=== PATIENT | female | born 1935 | race Caucasian/White ===

== ENCOUNTER 2025-01-09 20:19 | Inpatient (IN) | payer MEDICAID, MEDICARE ==
[~2025-01-09] VITALS: Ht 157.5 cm; Wt 49.9 kg
[2025-01-09] MEDS: MAGNESIUM/ALUMINUM HYDROXIDE/SIMETHICONE 30ML UDC PO ONE (21:13)
[2025-01-09 21:28] LABS: BASOPHILS % 0.8 % (0.0-2.0); HEMATOCRIT. 40.8 % (36.0-48.0); HEMOGLOBIN. 13.4 g/dL (12.0-16.0); LYMPHOCYTES % 37.5 % (20.0-50.0); MEAN CORPUSCULAR HEMOGLOBIN 29.5 pg (28.0-32.0); MEAN CORPUSCULAR HGB CONC 32.9 g/dL (31.0-37.0); MEAN CORPUSCULAR VOLUME 89.8 fL (81.0-99.0); MEAN PLATELET VOLUME 8.6 fl (7.4-10.4); MONOCYTES % 10.8 % (2.0-8.0); NEUTROPHILS % 47.9 % (40.0-76.0); PLATELET 215 x1000/uL (130-400); RED BLOOD CELL COUNT 4.54 mill/uL (4.2-5.4); RED CELL DISTRIBUTION WIDTH 15.5 % (11.6-14.6); WHITE BLOOD COUNT 5.5 x1000/uL (4.5-11.0)
[2025-01-09 21:33] LABS: POTASSIUM 4.2 mEq/L (3.5-5.1)
[2025-01-09 21:34] LABS: CALCIUM 9.5 mg/dL (8.7-10.4)
[2025-01-09 21:39] LABS: CREATININE 1.1 mg/dL (0.6-1.0)
[2025-01-10] VITALS (7 sets, daily range): BP systolic 102–152; BP diastolic 50–105; PULSE 61–78; RESP 18–19; TEMP 35.7–36.6; O2SAT 97–100
[2025-01-10] MEDS ORDERED: IPRATROPIUM/ALBUTEROL 0.5-3(2.5)MG/3ML NEB HHN PRN (03:00)
[2025-01-10] MEDS ORDERED: ONDANSETRON HCL 4MG/2ML INJ IV PRN (03:00)
[2025-01-10] MEDS ORDERED: ACETAMINOPHEN 325MG TABLET PO PRN (03:00)
[2025-01-10] MEDS ORDERED: HYDRALAZINE 20MG/ML VIAL IV PRN (03:15)
[2025-01-10] MEDS ORDERED: HYDRALAZINE 10 MG in SODIUM CHLORIDE 0.9% 49.5 ML IV PRN (03:15)
[2025-01-10] MEDS: DEXT 5%/0.45% NACL 1000ML 1,000 ML IV SCH (03:50)
[2025-01-10] MEDS: PANTOPRAZOLE SODIUM 40 MG/VIAL IV SCH (03:51)
[2025-01-10] MEDS: CETIRIZINE 10MG TABLET PO NR (04:42)
[2025-01-10] MEDS: ENOXAPARIN 30MG/0.3ML SYR SUBCUT SCH (08:52)
[2025-01-10 13:48] LABS: CHLORIDE 109 mEq/L (98-107); POTASSIUM 3.7 mEq/L (3.5-5.1); SODIUM 141 mEq/L (136-145)
[2025-01-10 13:49] LABS: CALCIUM 8.3 mg/dL (8.7-10.4); CARBON DIOXIDE 25 mEq/L (21-32)
[2025-01-10 13:54] LABS: GLUCOSE 116 mg/dL (70-105); TROPONIN I HIGH SENSITIVITY 22 ng/L (3.0-34); UREA NITROGEN BLOOD 21 mg/dL (9-23)
[2025-01-10 13:56] LABS: ALANINE AMINOTRANSFERASE 29 IU/L (10-49); ALBUMIN 3.7 g/dL (3.2-4.8); ASPARTATE AMINOTRANSFERASE 31 IU/L (<34); BILIRUBIN DIRECT 0.1 mg/dL (<=3.0); BILIRUBIN TOTAL 0.4 mg/dL (0.1-1.0); PROTEIN TOTAL 6.4 g/dL (6.0-8.3)
[2025-01-10 17:57] LABS: CREATINE KINASE MB FRACTION 3.5 ng/mL (0.5-3.6)
[2025-01-10 22:23] LABS: CLARITY URINE CLEAR (CLEAR); COLOR URINE YELLOW (YELLOW); GLUCOSE URINE NEGATIVE (NEGATIVE); KETONES URINE NEGATIVE (NEGATIVE); LEUKOCYTE ESTERASE URINE 3+ (NEGATIVE); NITRITE URINE NEGATIVE (NEGATIVE); OCCULT BLOOD URINE TRACE (NEGATIVE); PH URINE 5.5 (4.5-8.0); PROTEIN URINE NEGATIVE (NEGATIVE); SPECIFIC GRAVITY URINE 1.008 (1.005-1.030); UROBILINOGEN URINE 0.2 E.U./dL (0.2-1.0)
[2025-01-10 22:31] LABS: *AMPHETAMINES SCREEN URINE NEGATIVE (NEGATIVE); *BENZODIAZEPINES SCREEN URINE NEGATIVE (NEGATIVE)
[2025-01-10 22:32] LABS: *BARBITURATES SCREEN URINE NEGATIVE (NEGATIVE); *COCAINE SCREEN URINE NEGATIVE (NEGATIVE); CANNABINOID URINE SCREEN NEGATIVE (NEGATIVE); ECSTASY MDMA SCREEN URINE NEGATIVE (NEGATIVE); METHADONE URINE SCREEN NEGATIVE (NEGATIVE); OPIATES URINE SCREEN NEGATIVE (NEGATIVE); PHENCYCLIDINE URINE SCREEN NEGATIVE (NEGATIVE)
[2025-01-10 22:34] LABS: BACTERIA URINE 4+; RBC URINE 0-2 /hpf (0-2); SQUAMOUS EPITHELIAL CELL URINE 2+ /lpf (RARE/1+)
[2025-01-10 22:35] LABS: WBC URINE 25-50 /hpf (0-2)
[2025-01-11] VITALS: BP 139/69; PULSE 73; RESP 18; TEMP 35.9; O2SAT 99
[2025-01-11 04:00] VITALS: BP 143/71; PULSE 67; RESP 19; TEMP 36.7; O2SAT 100
[2025-01-11 08:00] VITALS: BP 168/98; PULSE 72; RESP 18; TEMP 36.3; O2SAT 98
[2025-01-11 12:00] VITALS: BP 150/82; PULSE 76; RESP 19; TEMP 36.3; O2SAT 97
[2025-01-11 16:00] VITALS: BP 119/68; PULSE 68; RESP 18; TEMP 36.5; O2SAT 99
[2025-01-11 16:00] LABS: BASOPHILS % 0.5 % (0.0-2.0); EOSINOPHILS % 3.2 % (0.0-5.0); HEMATOCRIT. 37.4 % (36.0-48.0); HEMOGLOBIN. 12.2 g/dL (12.0-16.0); LYMPHOCYTES % 24.7 % (20.0-50.0); MEAN CORPUSCULAR HEMOGLOBIN 29.9 pg (28.0-32.0); MEAN CORPUSCULAR HGB CONC 32.6 g/dL (31.0-37.0); MEAN CORPUSCULAR VOLUME 91.6 fL (81.0-99.0); MEAN PLATELET VOLUME 8.7 fl (7.4-10.4); MONOCYTES % 14.5 % (2.0-8.0); NEUTROPHILS % 57.1 % (40.0-76.0); PLATELET 179 x1000/uL (130-400); RED BLOOD CELL COUNT 4.08 mill/uL (4.2-5.4); RED CELL DISTRIBUTION WIDTH 15.6 % (11.6-14.6); WHITE BLOOD COUNT 6.2 x1000/uL (4.5-11.0)
[2025-01-11 16:12] LABS: CARBON DIOXIDE 25 mEq/L (21-32); CHLORIDE 111 mEq/L (98-107); POTASSIUM 3.6 mEq/L (3.5-5.1); SODIUM 143 mEq/L (136-145)
[2025-01-11 16:14] LABS: CALCIUM 8.6 mg/dL (8.7-10.4)
[2025-01-11 16:18] LABS: CREATININE 0.8 mg/dL (0.6-1.0); GLUCOSE 92 mg/dL (70-105); UREA NITROGEN BLOOD 15 mg/dL (9-23)
[2025-01-11 16:21] LABS: T4 FREE 1.04 ng/dL (0.89-1.76)
[2025-01-11 16:22] LABS: THYROID STIMULATING HORMONE 4.13 uIU/mL (0.55-4.78)
[2025-01-11 20:00] VITALS: BP 128/59; PULSE 73; RESP 19; TEMP 36.7; O2SAT 97
[2025-01-12] VITALS: BP 129/63; PULSE 82; RESP 18; TEMP 36.5; O2SAT 98
[2025-01-12 04:00] VITALS: BP 122/71; PULSE 83; RESP 20; TEMP 36.6; O2SAT 95
[2025-01-12 08:00] VITALS: BP 125/70; PULSE 67; RESP 20; TEMP 36.6; O2SAT 99
[2025-01-12] MEDS: FAMOTIDINE 20MG/2ML VIAL IV SCH (08:42)
[2025-01-12] MEDS: ENOXAPARIN 40MG/0.4ML SYR SUBCUT SCH (08:43)
[2025-01-12 12:00] VITALS: BP 146/67; PULSE 81; RESP 20; TEMP 36.6; O2SAT 100
[2025-01-12 14:00] VITALS: BP 131/73; PULSE 75; RESP 19; TEMP 36.6; O2SAT 99
[2025-01-12 14:58] VITALS: BP 146/67; PULSE 81; TEMP 97.7; O2SAT 100
== END 2025-01-12 17:05 | disposition home or self-care (01) | DRG 115 ==
LOC: ER 20:19 → 6EST 01-10 00:48 → ENRESERV 01-10 01:04
PROVIDERS: ADMIT Internal Medicine; ATTEND Internal Medicine
DX: J38.2 Nodules of vocal cords (principal); N17.9 Acute kidney failure, unspecified; R62.7 Adult failure to thrive; I10 Essential (primary) hypertension; T76.91XA Unspecified adult maltreatment, suspected, initial encounter; F03.90 Unspecified dementia, unspecified severity, without behavioral disturbance, psychotic disturbance, mood disturbance, and anxiety; Y08.89XA Assault by other specified means, initial encounter; Z87.891 Personal history of nicotine dependence; Z68.20 Body mass index [BMI] 20.0-20.9, adult
CPT/HCPCS: 36415; 70490; 71250; 80048; 80076; 80305; 81003; 82550; 82553; 83605; 84145; 84439; 84443; 84484; 85025; 87015; 87045; 87427; 87449; 89055; 92610; 93970; 99285; J1650; J2470; J3490